=== PATIENT | male | born 1955 | race Caucasian/White ===

== ENCOUNTER 2017-09-03 13:06 | Emergency (ER) | payer OTHER ==
[2017-09-03 13:57] VITALS: BP 131/80
--- NOTE | 2017-09-03 16:34 | UC ---
Skin Complaint HPI - HPI Summary HPI Summary: Patient is a 61-year-old male presenting to the with a left hand complaint. Area to the palmar side just inferior to the index finger over the MCP shows an area of 1.5 cm of slight erythema surrounding a white purulent raised area with a possible foreign body. He states 10 days ago he punctured the area with a wood piece and feels he may have gotten the entire wood piece dislodged, however the area continues to worsen. He was placed on Keflex to his PCP 5 days ago and completed his antibiotic yesterday. She advised if symptoms worsen to come into the UC. Denies any fevers, sweats, chills or other signs of systemic infection. - History of Current Complaint Chief Complaint: UCSkin Time Seen by Provider: 09/03/17 14:11 Stated Complaint: RED SWOLLEN PAINFUL HAND Hx Obtained From: Patient Onset/Duration: Sudden Onset Skin Exposure Onset/Duration: Days Ago Timing: Constant Onset Severity: Moderate Current Severity: Moderate Pain Intensity: 0 Pain Scale Used: 0-10 Numeric Character: Pain Aggravating Factor(s): Nothing, Touch Alleviating Factor(s): Nothing Associated Signs & Symptoms: Positive: Negative Related History: Trauma - Allergy/Home Medications Allergies/Adverse Reactions: Allergies Allergy/AdvReac Type Severity Reaction Status Date / Time MS Metformin [Metformin] Allergy Unknown Verified 01/15/16 17:27 Reaction Details MS Sertraline [From Zoloft] Allergy Unknown Verified 01/15/16 17:27 Reaction Details Review of Systems Constitutional: Negative Skin: Other - 1.5cm area with raised purulent abscess Respiratory: Negative Cardiovascular: Negative Motor: Negative Neurovascular: Negative Is Patient Immunocompromised?: No All Other Systems Reviewed And Are Negative: Yes PMH/Surg Hx/FS Hx/Imm Hx Previously Healthy: Yes - Surgical History Surgical History: Yes Surgery Procedure, Year, and Place: RIGHT KNEE, [facility], 2007. 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 Smoking Status (MU): Former Smoker Type: Cigarettes Have You Smoked in the Last Year: Yes Household Exposure Type: Cigarettes - Immunization History Most Recent Influenza Vaccination: 2014 Most Recent Tetanus Shot: August 2017 Most Recent Pneumonia Vaccination: unkown Physical Exam Triage Information Reviewed: Yes Appearance: Well-Appearing, Well-Nourished Vital Signs: Initial Vital Signs Temp 98.1 F 09/03/17 13:53 Pulse 90 09/03/17 13:53 Resp 12 09/03/17 13:53 BP 131/80 09/03/17 13:53 Pulse Ox 99 09/03/17 13:53 Vital Signs Reviewed: Yes Eye Exam: Normal Neck exam: Normal Neck: Positive: Supple, No Lymphadenopathy Respiratory Exam: Normal Respiratory: Positive: Lungs clear Musculoskeletal Exam: Normal Musculoskeletal: Positive: Strength Intact Neurological Exam: Normal Psychological: Positive: Normal Response To Family Skin: Positive: Other - 1.5cm area with raised purulent abscess Course/Dx - Course Course Of Treatment: During the course treatment, the patient's evaluated for purulent white area to the MCP joint of the palmar side. Used 14-gauge needle to puncture the area with copious amount of purulent drainage following. There appeared to be a darkened area under this area. Tweezers pulled out a 1.5 cm x 0.2 cm wooden piece intact. Antibiotic ointment applied. Bandage applied. - Diagnoses Provider Diagnoses: Foreign Body Discharge - Sign-Out/Discharge Documenting (check all that apply): Patient Departure - Discharge Plan Condition: Stable Disposition: HOME Patient Education Materials: Soft Tissue Foreign Body (ED) Referrals: Qiana Shore MD [Primary Care Provider] - Additional Instructions: If you develop any signs of infection, you may come back to the UC or go see your PCP This will include lots of drainage, redness around the area or streaking up the hand with redness - Billing Disposition and Condition Condition: STABLE Disposition: Home Attestation Statement User Type: Provider - I was available for consult. This patient was seen by the REHA[facility]. The patient was not presented to, seen by, or examined by me. -Rogers
== END 2017-09-03 14:47 | disposition home or self-care (01) ==
LOC: UCEAST 13:06
DX: S61.241A Puncture wound with foreign body of left index finger without damage to nail, initial encounter (principal); Z88.8 Allergy status to other drugs, medicaments and biological substances; Z87.891 Personal history of nicotine dependence; W45.8XXA Other foreign body or object entering through skin, initial encounter; Y92.9 Unspecified place or not applicable
CPT/HCPCS: 10120; 99212; G0463

== ENCOUNTER 2018-07-02 19:05 | Emergency (ER) | payer OTHER ==
--- NOTE | 2018-07-02 19:17 | UC ---
Skin Complaint HPI - HPI Summary HPI Summary: 62 yo male presents with tick bite. He tells me that yesterday he pulled off two ticks. One was attached to his right forearm and another was attached to his upper right thigh. He admits that he had to use tweezers to "go digging" for both. States they were attached less than a few hours. Today developed some itching and bruising around the areas. He is concerned that this is the bull's eye rash and that he has developed lyme disease. - History of Current Complaint Time Seen by Provider: 07/02/18 19:07 Stated Complaint: TICK BITE Hx Obtained From: Patient Onset/Duration: Sudden Onset Onset Severity: Mild Current Severity: Mild Pain Intensity: 3 Pain Scale Used: 0-10 Numeric - Allergy/Home Medications Allergies/Adverse Reactions: Allergies Allergy/AdvReac Type Severity Reaction Status Date / Time metformin Allergy Unknown Verified 07/02/18 19:21 Reaction Details MS Metformin [Metformin] Allergy Unknown Verified 01/15/16 17:27 Reaction Details MS Sertraline [From Zoloft] Allergy Unknown Verified 01/15/16 17:27 Reaction Details sertraline Allergy Unknown Verified 07/02/18 19:21 Reaction Details Home Medications: Home Medications Insulin GLARGINE(*) [Lantus(*)] 50 units SUBCUT DAILY 07/02/18 [History Confirmed 07/02/18] Insulin GLARGINE(*) [Lantus(*)] 60 units SUBCUT DAILY 07/02/18 [History Confirmed 07/02/18] PMH/Surg Hx/FS Hx/Imm Hx Endocrine History: Diabetes, Dyslipidemia Cardiovascular History: Hypertension Respiratory History: COPD - Surgical History Surgical History: Yes Surgery Procedure, Year, and Place: RIGHT KNEE, [facility], 2007. 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 WDWN. No pain distress. SKIN: RIGHT FOREARM: 2mm scab at previous tick bite with faint surrounding erythema and dry itchy skin. No abscess, streaking, or edema. RIGHT UPPER THIGH : there is a 1.0cm area of ecchymosis with central 1mm scab from tick bite. No erythema, warmth, edema, or tenderness. CHEST: No accessory muscle use. Breathing comfortably and in no distress. CV: Pulses intact. Cap refill <2seconds NEURO: Alert. PSYCH: Age appropriate behavior. Triage Information Reviewed: Yes Vital Signs: Vital Signs: Temp Pulse Resp BP Pulse Ox 99.1 F 87 14 134/70 94 07/02/18 19:20 07/02/18 19:20 07/02/18 19:20 07/02/18 19:20 07/02/18 19:20 Vital Signs Reviewed: Yes Course/Dx - Course Course Of Treatment: Tick bites appear to be typical and without sign of infection. He does have a fair amount of dry skin/eczema/dermatitis to his b/l arms which he has used OTC hydrocortisone for in the past with mild relief - will rx for kenalog cream today. Advised to monitor for signs and symptoms of lyme disease and f/u if he develops these. - Diagnoses Provider Diagnosis: Tick bite, Dermatitis Discharge - Sign-Out/Discharge Documenting (check all that apply): Patient Departure All imaging exams completed and their final reports reviewed: No Studies - Discharge Plan Condition: Stable Disposition: HOME Prescriptions: Triamcinolone 0.1% CREAM (NF) [Kenalog 0.1% Cream (NF)] 1 applic TOPICAL BID #1 tube Patient Education Materials: Lyme Disease (ED), Tick Bite (ED), Dermatitis (ED) Referrals: Qiana Shore MD [Primary Care Provider] - Additional Instructions: If you develop a fever, shortness of breath, chest pain, new or worsening symptoms - please call your PCP or go to the ED immediately. Your blood pressure was high at todays visit. Please see your primary provider within 4 weeks for recheck and re-evaluation. TICK BITE: You have been bitten by a tick. Once the tick is removed, these "bites" usually cause no problems. Tick fever, tick paralysis, [place] Spotted fever, and Lyme disease are uncommon -- but you should mention this tick bite to your doctor if you develop unusual symptoms in the next several weeks. If you develop any of the following, please see your physician promptly: (1) Fever, chills, or generalized malaise associated with a headache. (2) A red round area at the site of the bite (or elsewhere) (3) Joint pain, joint swelling or generalized weakness. (4) Redness, swelling, or drainage at the site of the bite. - Billing Disposition and Condition Condition: STABLE Disposition: Home
[2018-07-02 19:28] VITALS: BP 134/70
== END 2018-07-02 19:32 | disposition home or self-care (01) ==
LOC: UCEAST 19:05
DX: S50.861A Insect bite (nonvenomous) of right forearm, initial encounter (principal); S70.361A Insect bite (nonvenomous), right thigh, initial encounter; W57.XXXA Bitten or stung by nonvenomous insect and other nonvenomous arthropods, initial encounter; Y92.9 Unspecified place or not applicable; L25.8 Unspecified contact dermatitis due to other agents; E11.9 Type 2 diabetes mellitus without complications; Z79.4 Long term (current) use of insulin; Z88.8 Allergy status to other drugs, medicaments and biological substances; Z87.891 Personal history of nicotine dependence
CPT/HCPCS: 99212; G0463